=== PATIENT | male | born 1970 | race Hispanic/Latino ===

== ENCOUNTER 2021-05-26 16:33 | Observation (INO) | payer OTHER ==
[~2021-05-26] VITALS: Ht 167.6 cm; Wt 90.0 kg
[2021-05-26 16:59] LABS: BASOPHILS % (AUTO) 0.3 % (0.0-5.0); EOSINOPHILS % (AUTO) 0.3 % (0.0-8.0); HEMATOCRIT 43.4 % (42-54); LYMPHOCYTES % (AUTO) 12.6 % (21.0-51.0); MEAN CORPUSCULAR HEMOGLOBIN 29.3 pg (27.0-33.0); MEAN CORPUSCULAR HGB CONC 33.2 g/dL (32.0-36.0); MEAN CORPUSCULAR VOLUME 88.4 fL (79-99); MONOCYTES % (AUTO) 10.8 % (3.0-13.0); NEUTROPHILS % (AUTO) 75.6 % (40.0-77.0); PLATELET COUNT (AUTO) 256 K/uL (130-400); RED BLOOD CELL COUNT(AUTO) 4.91 MIL/uL (4.50-6.20); RED CELL DISTRIBUTION WIDTH 12.6 % (11.0-15.5); WHITE BLOOD COUNT (AUTO) 18.9 K/uL (4.8-10.8)
[2021-05-26] MEDS ORDERED: MORPHINE 4 MG SYG IV ONE (17:00)
[2021-05-26] MEDS ORDERED: 0.9%NACL 1000ML 1,000 ML IV ONE (17:00)
[2021-05-26] MEDS ORDERED: ONDANSETRON 4MG INJ IVP ONE (17:00)
[2021-05-26 17:02] LABS: APPEARANCE,URINE CLEAR (CLEAR); BILIRUBIN,URINE NEGATIVE (NEGATIVE); COLOR,URINE YELLOW (YELLOW); GLUCOSE, URINE (UA) NEGATIVE (NEGATIVE); KETONES,URINE NEGATIVE (NEGATIVE); LEUKOCYTE ESTERASE ,URINE NEGATIVE (NEGATIVE); NITRATE,URINE NEGATIVE (NEGATIVE); OCCULT BLOOD,URINE NEGATIVE (NEGATIVE); PROTEIN,URINE NEGATIVE (NEGATIVE); UROBILINOGEN,URINE 0.2 mg/dL (0.2-1.0)
[2021-05-26 17:10] LABS: POTASSIUM 3.5 mmol/L (3.5-5.1)
[2021-05-26 17:14] LABS: ALBUMIN 3.7 g/dL (3.5-5.0)
[2021-05-26] MEDS ORDERED: IOHEXOL 350 MG/ML 100ML INFUS..BTL IV ONE (17:39)
[2021-05-26] MEDS ORDERED: ZOSYN 3.375GM+NS 50ML 50 ML ONE (18:38)
[2021-05-26] MEDS ORDERED: ZOSYN 3.375GM +NS 50ML IV SCH (19:00)
[2021-05-26] MEDS ORDERED: ACETAMINOPHEN 325 MG TAB PO PRN (20:30)
[2021-05-26] MEDS ORDERED: MORPHINE 2 MG SYG IV PRN (20:30)
[2021-05-26] MEDS ORDERED: HYDRALAZINE 20MG/ML VIAL IV PRN (20:30)
[2021-05-26] MEDS ORDERED: MORPHINE 4 MG SYG IV PRN (20:30)
[2021-05-26] MEDS: ZOSYN 3.375GM+NS 50ML 50 ML IV SCH (20:52)
[2021-05-26] MEDS: FAMOTIDINE 20MG VIAL IV SCH (21:05)
[2021-05-26] MEDS: 0.9%NACL 1000ML 1,000 ML IV SCH (21:05)
[2021-05-26] MEDS ORDERED: INSU10VI3 SQ (21:56)
[2021-05-26] MEDS ORDERED: LISI10TA24 PO (21:56)
[2021-05-26] MEDS ORDERED: ATOR40TA71 PO (21:56)
[2021-05-26] MEDS ORDERED: CLOP75TA14 PO (21:56)
[2021-05-26 22:45] VITALS: BP 121/75
[2021-05-27] VITALS (24 sets, daily range): BP systolic 85–161; BP diastolic 44–92
[2021-05-27] MEDS: ZOSYN 3.375GM+NS 50ML 50 ML IV SCH ×3 (05:08→21:14)
[2021-05-27] MEDS: 0.9%NACL 1000ML 1,000 ML IV SCH ×3 (05:09→21:16)
[2021-05-27 05:35] LABS: BASOPHILS % (AUTO) 0.3 % (0.0-5.0); EOSINOPHILS % (AUTO) 0.6 % (0.0-8.0); HEMATOCRIT 40.8 % (42-54); LYMPHOCYTES % (AUTO) 13.3 % (21.0-51.0); MEAN CORPUSCULAR HEMOGLOBIN 29.5 pg (27.0-33.0); MEAN CORPUSCULAR HGB CONC 33.1 g/dL (32.0-36.0); MEAN CORPUSCULAR VOLUME 89.3 fL (79-99); MONOCYTES % (AUTO) 10.2 % (3.0-13.0); NEUTROPHILS % (AUTO) 75.2 % (40.0-77.0); PLATELET COUNT (AUTO) 233 K/uL (130-400); RED BLOOD CELL COUNT(AUTO) 4.57 MIL/uL (4.50-6.20); RED CELL DISTRIBUTION WIDTH 12.8 % (11.0-15.5); WHITE BLOOD COUNT (AUTO) 13.4 K/uL (4.8-10.8)
[2021-05-27 05:53] LABS: HEMOGLOBIN A1C 6.5 % (4.0-6.0)
[2021-05-27 05:55] LABS: INR 1.06 (0.85-1.15); PROTHROMBIN TIME 11.5 SEC (9.6-11.6)
[2021-05-27 05:56] LABS: PARTIAL THROMBOPLASTIN TIME 30.7 SEC (26.3-35.5)
[2021-05-27 06:02] LABS: CREATININE 0.9 mg/dL (0.5-1.5); PHOSPHORUS 3.1 mg/dL (2.5-4.9); POTASSIUM 4.2 mmol/L (3.5-5.1)
[2021-05-27] MEDS: FAMOTIDINE 20MG VIAL IV SCH ×2 (07:58→21:14)
[2021-05-27] MEDS ORDERED: 0.9%NACL 50ML 50 ML IV ONE ×2 (12:39→21:00)
[2021-05-27] MEDS ORDERED: LIDOCAINE 1%-EPI 1:100,000 20 ML VIAL IJ SCH ×2 (16:30→17:00)
[2021-05-27] MEDS ORDERED: PROPOFOL 10 MG/ML 20ML VIAL IV ONE (16:31)
[2021-05-27] MEDS ORDERED: MIDAZOLAM HCL 1 MG/ML 2ML VIAL ONE (16:31)
[2021-05-27] MEDS ORDERED: NEOSTIGMINE 5MG/5ML SYR IV ONE (16:31)
[2021-05-27] MEDS ORDERED: DEXAMETHASONE SOD PHOSPHATE 10MG/ML 1ML VIAL ONE (16:31)
[2021-05-27] MEDS ORDERED: ONDANSETRON 4MG INJ ONE (16:31)
[2021-05-27] MEDS ORDERED: GLYCOPYRROLATE 1 MG/5 ML SYRINGE ONE (16:31)
[2021-05-27] MEDS ORDERED: LIDOCAINE PF 100MG/5ML (2%) SYRINGE 5ML ONE (16:31)
[2021-05-27] MEDS ORDERED: FENTANYL CITRATE PF 50 MCG/1 ML 2ML VIAL ONE ×2 (16:32→17:26)
[2021-05-27] MEDS ORDERED: ROCURONIUM 10MG/1ML SYR 10 MG/ML ML ONE (16:32)
[2021-05-27] MEDS ORDERED: BUPIVACAINE/PF 0.25% 30ML VIAL IJ ONE ×2 (16:33→18:20)
[2021-05-27] MEDS ORDERED: LIDOCAINE 1%-EPI 1:100,000 20 ML VIAL IJ ONE (18:20)
[2021-05-28 03:30] VITALS: BP 144/93
[2021-05-28 04:27] LABS: HEMATOCRIT 39.9 % (42-54); MEAN CORPUSCULAR HEMOGLOBIN 30.1 pg (27.0-33.0); MEAN CORPUSCULAR HGB CONC 33.6 g/dL (32.0-36.0); MEAN CORPUSCULAR VOLUME 89.7 fL (79-99); RED BLOOD CELL COUNT(AUTO) 4.45 MIL/uL (4.50-6.20); RED CELL DISTRIBUTION WIDTH 12.3 % (11.0-15.5); WHITE BLOOD COUNT (AUTO) 11.9 K/uL (4.8-10.8)
[2021-05-28 04:36] LABS: CREATININE 0.9 mg/dL (0.5-1.5); POTASSIUM 4.5 mmol/L (3.5-5.1)
[2021-05-28] MEDS ORDERED: 0.9%NACL 50ML 50 ML IV ONE ×2 (05:05→12:31)
[2021-05-28] MEDS: ZOSYN 3.375GM+NS 50ML 50 ML IV SCH ×2 (05:10→13:45)
[2021-05-28] MEDS ORDERED: OXYCODONE/ACETAMIN 5/325MG TAB PO PRN (07:30)
[2021-05-28] MEDS: FAMOTIDINE 20MG VIAL IV SCH (07:48)
[2021-05-28] MEDS: 0.9%NACL 1000ML 1,000 ML IV SCH (07:56)
[2021-05-28 08:00] VITALS: BP 157/84
[2021-05-28 11:44] VITALS: BP 155/79
[2021-05-28 16:00] VITALS: BP 147/76
[2021-05-29] MEDS ORDERED: CLOPIDOGREL 75MG TAB PO SCH (09:00)
[2021-05-29] MEDS ORDERED: LISINOPRIL 10 MG TABLET PO SCH (09:00)
== END 2021-05-28 18:00 | disposition home or self-care (01) ==
LOC: EDH 16:49 → INTOOBSV 20:01 → EDHIP 20:01 → 3DH 22:08 → 2AH 05-27 01:12 → 3AH 05-28 13:47
PROVIDERS: ADMIT Hospitalist; ATTEND Hospitalist
DX: U07.1 COVID-19 (principal); K35.80 Unspecified acute appendicitis; K42.9 Umbilical hernia without obstruction or gangrene; D72.829 Elevated white blood cell count, unspecified; R11.2 Nausea with vomiting, unspecified; I10 Essential (primary) hypertension; E11.9 Type 2 diabetes mellitus without complications; E78.00 Pure hypercholesterolemia, unspecified; E78.5 Hyperlipidemia, unspecified; F41.8 Other specified anxiety disorders; M43.16 Spondylolisthesis, lumbar region; Z86.73 Personal history of transient ischemic attack (TIA), and cerebral infarction without residual deficits; Z79.899 Other long term (current) drug therapy; Z56.0 Unemployment, unspecified
CPT/HCPCS: 36415 ×3; 44970; 74177; 76775; 80048 ×2; 80053; 81003; 82948 ×5; 83036; 83735; 84100; 85025 ×2; 85027; 85610; 85730; 86850; 86900; 86901; 87040 ×2; 87635 ×2; 93005; 96365; 96366 ×2; 96375; 96376 ×2; 99285; A4222; A4223; A4344; A4600; A4649 ×5; A4930; A6207; C1769 ×3; G0378 ×8; J1100; J2001; J2250; J2270; J2405 ×2; J2543 ×6; J2704; J2710; J3010 ×2; J3490 ×10; J7030 ×5; Q9967